=== PATIENT | female | born 1995 | race Caucasian/White ===

== ENCOUNTER → 2019-08-14 | Emergency (ER) | payer MEDICAID, OTHER ==
[~2019-08-14] VITALS: Ht 162.6 cm; Wt 68.0 kg
[~2019-08-14] MED LIST: LIDOCAINE 1% HCL (LOCAL ANESTH.) INJ 20ML MDV XX ONE; LIDOCAINE W/ EPINEPHRINE 2% INJ 20ML VIAL ID ONE; TETRACAINE HCL 0.5% OPTH(EYE) SOLN 4ML RIGHTEYE ONE; cefTRIAXone SOD 1,000 MG VL IM ONE; cefTRIAXone W LIDOCAINE 1 GM IM IM ONE
[2019-08-14 19:26] LABS: Basophils # (auto) 0 10 ^3/uL (0-0.2); Basophils % (auto) 0.4 % (0.0-2.0); Eosinophils # (auto) 0.3 10 ^3/uL (0-0.8); Eosinophils % (auto) 2.5 % (0.0-7.0); Hematocrit 44.7 % (36.0-46.0); Hemoglobin 14.7 g/dL (12.2-16.2); Lymphocytes # (auto) 2.8 10 ^3/uL (0.4-5.4); Lymphocytes % (auto) 24.2 % (10.0-50.0); Mean Corpuscular Volume 87.9 fL (80.0-100.0); Monocytes # (auto) 0.8 10 ^3/uL (0-1.3); Monocytes % (auto) 7.1 % (0.0-12.0); Neutrophils # (auto) 7.6 10 ^3/uL (1.6-8.6); Neutrophils % (auto) 65.8 % (37.0-80.0); Platelet Count (auto) 182 10^3/uL (140-450); Red Blood Cells 5.08 10^6/uL (4.0-5.20); Red Cell Distribution Width 14.6 % (11.8-14.3); White Blood Cell 11.5 10^3/uL (4.4-10.8)
[2019-08-14 19:46] LABS: Albumin 3.6 g/dL (3.4-5.0); BUN/Creatinine Ratio 17.1; Calcium 8.1 mg/dL (8.5-10.1); INR 1.01 (0.9-1.15); Partial Thromboplastin Time 28.9 sec (23.64-32.05); Potassium 3.8 mmol/L (3.5-5.1)
[2019-08-14 19:48] LABS: Bilirubin, Total 0.3 mg/dL (0.2-1.0); Total Protein 7.4 g/dL (6.4-8.2)
[2019-08-14 23:00] VITALS: BP 116/82
== END | disposition home or self-care (01) ==
LOC: ER 17:08
DX: S02.31XA Fracture of orbital floor, right side, initial encounter for closed fracture (principal); S01.111A Laceration without foreign body of right eyelid and periocular area, initial encounter; S01.81XA Laceration without foreign body of other part of head, initial encounter; F17.210 Nicotine dependence, cigarettes, uncomplicated; W22.8XXA Striking against or struck by other objects, initial encounter; Y93.89 Activity, other specified; Y92.89 Other specified places as the place of occurrence of the external cause; Y99.8 Other external cause status
CPT/HCPCS: 12011; 36415; 70450; 70486; 80053; 84702; 85025; 85610; 85730; 96372; 99285; J0696; J2001